=== PATIENT | female | born 1950 | race Caucasian/White ===

== ENCOUNTER 2021-07-16 15:22 | Emergency (ER) | payer MEDICARE, OTHER ==
[~2021-07-16] VITALS: Ht 165.1 cm; Wt 174.0 kg
[~2021-07-16 15:22] MED LIST: ACET-1059 PO; NO HOME MEDS
[2021-07-16] MEDS ORDERED: morphine 4 MG/ML inj SYRINge IV ONE (16:25)
[2021-07-16] MEDS ORDERED: lactulose 20gm/30ml cup PO ONE (16:25)
[2021-07-16] MEDS ORDERED: ondansetron 4mg rapidly disintigrating tab PO ONE (16:25)
[2021-07-16] MEDS ORDERED: magnesium citrate 296ml oral solution PO ONE (16:25)
--- NOTE | 2021-07-16 16:54 | NUR ---
morphine given via IM, ok'd by Jeol ESQUIVEL.
[2021-07-16 17:00] VITALS: BP 178/90
--- NOTE | 2021-07-16 18:00 | NUR ---
finished enema,patient left galvan.
[2021-07-16] MEDS ORDERED: dexamethasone sod phosphate 10mg/ml inj IM STA (18:21)
--- NOTE | 2021-07-16 18:32 | NUR ---
no bm from soap ernesto enema.lino ESQUIVEL aware,will order mag citrate and dc pt.
[2021-07-16] MEDS ORDERED: MAGN296S68 PO (18:42)
[2021-07-16] MEDS ORDERED: METH4TAB3 PO (18:42)
--- NOTE | 2021-07-16 20:02 | NUR ---
Pt had small bm liquid, brown. Bed changed. Pt resting no acute distress.
[2021-07-16] MEDS ORDERED: ondansetron/PF 4mg/2ml inj IM ONE (20:40)
[2021-07-16] MEDS ORDERED: morphine 4 MG/ML inj SYRINge IM ONE (20:40)
[2021-07-16] MEDS ORDERED: TRAM50TA2 PO (20:42)
== END 2021-07-16 21:22 | disposition home or self-care (01) ==
LOC: ER 15:22
DX: M54.50 Low back pain, unspecified (principal); G89.29 Other chronic pain; K59.00 Constipation, unspecified; Z98.890 Other specified postprocedural states; Z72.89 Other problems related to lifestyle; Z79.899 Other long term (current) drug therapy
CPT/HCPCS: 74176; 96372; 96374; 99284; J1100; J2270; J2405

== ENCOUNTER 2021-07-27 20:25 | Emergency (ER) | payer MEDICARE ==
[~2021-07-27] VITALS: Ht 165.1 cm; Wt 76.4 kg
[~2021-07-27 20:25] MED LIST changes: +MAGN296S68 PO; +METH4TAB3 PO
[2021-07-27] MEDS ORDERED: ondansetron 4mg rapidly disintigrating tab PO ONE (23:35)
[2021-07-27] MEDS ORDERED: HYDROcodone/acetaminophen 5mg/325mg tablet PO ONE (23:35)
[2021-07-27] MEDS ORDERED: orphenadrine citrate 60mg/2ml inj. IM ONE (23:35)
[2021-07-27] MEDS ORDERED: acetaminophen 325mg tablet PO ONE (23:35)
[2021-07-27] MEDS ORDERED: HYDR-3965 PO (23:37)
[2021-07-28] MEDS ORDERED: ketorolac trometh inj. 60 MG/2 ML VIAL IM ONE (01:00)
[2021-07-28] MEDS ORDERED: oxyCODONE IR 5mg (immed. release) tablet PO ONE (01:00)
[2021-07-28 01:25] VITALS: BP 154/91
== END 2021-07-28 01:27 | disposition home or self-care (01) ==
LOC: ER 20:26
DX: M54.89 Other dorsalgia (principal); G89.29 Other chronic pain; Z98.890 Other specified postprocedural states; Z72.89 Other problems related to lifestyle; Z79.899 Other long term (current) drug therapy
CPT/HCPCS: 96372; 99284; J1885; J2360